=== PATIENT | male | born 1990 | race Caucasian/White ===

== ENCOUNTER 2024-06-03 08:57 | Outpatient (CLI) | payer OTHER ==
--- NOTE | 2024-06-03 09:59 | Sleep Patient Instructions ---
Sleep Center Visit Summary - Patient Visit Information Reason for Visit: Initial consult for evaluation of sleep disordered breathing and other sleep issues. - Patient Instructions Instructions Attached: Sleep Study Additional Instructions: You will be completing a sleep study, either an in-lab polysomnography (PSG) or home sleep study (HST). You will follow-up in the sleep care office after the sleep study is completed to hear the results and talk about therapy, if needed. You will be called by our office staff to schedule this appointment, but you may contact us with any questions. - Clinic Information Contact: [facility] [address] [place] [address] [email or web address] T: [phone]
--- NOTE | 2024-06-03 10:02 | SLEEP CARE CONSULTATION ---
Information from patient questionnaire entered by Abril Ellington. I have reviewed and concur with the information entered by Abril Ellington. This document represents the service I personally performed and the decisions made by me, Aida Peter ARNP. History of Present Illness Service Date and Time: 06/03/2024 0857 Reason for Visit: New patient Chief Complaint: reports: Insomnia, Snoring, Excessive daytime sleepiness, Observed pauses in breathing, Fatigue Date of Onset: 6 + years Usual bedtime: 9 - 11 PM Time it takes to fall asleep: ~ 5 mins Snores at night: Yes Observed to quit breathing while asleep: Yes Sleeps alone due to snoring: No Number of times waking at night: 1 - 2 times occasionally Reasons for waking at night: reports: Snoring, Pain, Bathroom, Other (Noise). denies: Choking, Gasping for air Toss, Turn, or Twitch while sleeping: Yes Recalls having dreams: Yes Usually gets out of bed at: 6:30 +- 30 mins Feels refreshed in the morning: No Morning headache: Yes (1 time weekly; Resolves after taking Ibuprofen) Sleepy or fatigued during the day: Yes Ever fallen asleep while driving: No Takes day naps: No Dreams during day naps: No Prior sleep studies: No Additional HPI information: I had the pleasure of seeing ALEK MCBRIDE today regarding the possibility of him having a sleep disorder. His current complaints are excessive daytime sleepiness, fatigue, insomnia, observed pauses in breathing and snoring. He says his girlfriend has told him that he has loud snoring and will have pauses in breathing when sleeping. He told his PCP and was referred here for ev aluation. His parents are both on CPAP machines. He has daytime fatigue and sleepiness but mostly in the afternoons. He feels he has difficulty with motivation and energy sometimes. He uses several alarms in morning to get him up in the morning. 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 Patient is and lives in [place]. Have you smoked in the past 12 months: No Alcohol use: No Caffeine use: Yes Caffeine amount and frequency: 2 mugs or Monster every day Family History Family history of sleep disordered breathing: Yes Family Hx Sleep Apnea: Mother: Snoring, Sleep apnea - Treated, Father: Snoring, Sleep apnea - Treated Allergies and Home Medications Known drug allergies: No Drug allergies reviewed: Yes Home medication list reviewed: Yes (as listed) Allergy and home medication list: Allergies pollen extracts Allergy (Verified 06/03/24 09:52) lactose Adverse Reaction (Verified 06/03/24 09:52) Cramps Home Medications Multia Daily Multivitamin See Rx Instructions .ROUTE .COMPLEX 06/03/24 [History] Review of Systems Weight gain over past 5 years: 5 Cardiovascular: reports: high blood pressure Gastrointestinal: reports: heartburn Neurological: reports: headaches. denies: head trauma Psychiatric: denies: anxiety, depression Ear/Nose/Throat: reports: injury to nose (as a child), wisdom teeth removed. denies: tonsillectomy Endocrine: reports: sluggishness (/tired) Musculoskeletal: reports: joint pain (/stiffness) Immunologic: reports: allergies to food or environment Physical Exam Vital signs obtained and entered by: Aida Dewitt NP Blood Pressure: 132/89 Cuff size: long (right arm) Heart Rate: 79 O2 Saturation: 99 Height: 5 ft 7 in Weight: 188 lb 12.8 oz Body Mass Index: 29.5 BMI Classification: Overweight Neck circumference: 17.5 Mouth and throat: narrow oropharynx Soft palate: normal Hard palate: normal Uvula: normal Uvula visualization: 50% Mallampati Class II Tongue: enlarged in size with teeth vergara on lateral edges Tonsils: small Neck: normal w/o lymphadenopathy or thyromegaly Heart: regular rate and rhythm Lungs: clear bilaterally Impression and Plan 1. Suspected Obstructive Sleep Apnea-Hypopnea Syndrome, as suggested by a history of loud and irregular snoring, observed cessation of breath while aslee p, morning headache, unrefreshed sleep, cognitive impairment, and excessive daytime sleepiness. Narrow oropharynx and obesity are common predisposing factors for obstructive sleep apnea-hypopnea syndrome. I recommend proceeding to polysomnography to confirm the diagnosis and to assess severity. If the patient has significant sleep disordered breathing, a manual CPAP titration study will also be performed to find the optimal treatment pressure. I informed the patient of what the sleep studies involve and after some discussion, obtained agreement to proceed. The pathophysiology of obstructive sleep apnea-hypopnea syndrome was discussed with the patient and health risks of cardiovascular and cerebrovascular disease if not treated. Risks of drowsy driving discussed in detail and patient advised to avoid long distance driving and to pot puller at the first sign of drowsiness. Patient agreed to plan. * Schedule polysomnography +- manual CPAP titration study and return in 1-2 weeks after the study to discuss result and initiate therapy. * Avoid long distance driving or driving when feeling sleepy. * Avoid alcohol, sedative and muscle relaxant around bedtime. * Attempt to lose weight. * Review instructions provided by trained office staff on how to prepare for the sleep study. * Return for follow-up after sleep study completed. Counseling Topics: Weight loss health impact Plan: sleep study and followup Visit Type: In Office Time Spent with Patient (minutes): 30 Provider Statement: I spent 100% of the Face to Face Visit with the patient with greater than 50% spent counseling the patient and coordination of care.
[2024-06-03 10:13] VITALS: BP 132/89; O2SAT 99
== END 2024-06-03 08:58 | disposition home or self-care (01) ==
LOC: SC 08:57
PROVIDERS: ATTEND Nurse Practitioner Family
DX: R06.83 Snoring (principal); R06.81 Apnea, not elsewhere classified; G47.10 Hypersomnia, unspecified; R53.83 Other fatigue; G47.00 Insomnia, unspecified; R51.9 Headache, unspecified; R41.89 Other symptoms and signs involving cognitive functions and awareness; E66.3 Overweight; Z68.29 Body mass index [BMI] 29.0-29.9, adult
CPT/HCPCS: 99203; 99212